=== PATIENT | male | born 2000 | race African-American/Black ===

== ENCOUNTER 2020-08-30 21:09 | Emergency (ER) | payer MEDICAID ==
[~2020-08-30] VITALS: Ht 170.2 cm; Wt 58.0 kg
[~2020-08-30 21:09] MED LIST: ALBU17AE26
[2020-08-31 00:39] VITALS: BP 117/89
== END 2020-08-31 00:43 | disposition home or self-care (01) ==
LOC: ER 21:09
DX: R05 Cough (principal); F12.90 Cannabis use, unspecified, uncomplicated
CPT/HCPCS: 99281

== ENCOUNTER 2020-11-17 23:56 | Emergency (ER) | payer MEDICAID ==
[~2020-11-17] VITALS: Ht 170.2 cm; Wt 61.0 kg
[2020-11-18 00:07] VITALS: BP 112/71
[2020-11-18] MEDS ORDERED: ALBU6.7H9 INH (01:20)
== END 2020-11-18 01:31 | disposition home or self-care (01) ==
LOC: ER 23:56
DX: R05 Cough (principal)
CPT/HCPCS: 71045; 99283

== ENCOUNTER 2021-02-15 18:25 | Emergency (ER) | payer MEDICAID ==
[~2021-02-15] VITALS: Ht 170.2 cm; Wt 61.0 kg
[~2021-02-15 18:25] MED LIST changes: +ALBU6.7H9 INH
[2021-02-15 18:28] VITALS: BP 116/64
[2021-02-15] MEDS ORDERED: MAGNESIUM/ALUMINUM HYDROXIDE/SIMETHICONE 30ML UDC PO STA (23:14)
[2021-02-15] MEDS ORDERED: KETOROLAC 60MG/2ML VIAL IM STA (23:14)
[2021-02-15] MEDS ORDERED: VISCOUS LIDOCAINE 2% 15 ML UDC PO STA (23:14)
[2021-02-15] MEDS ORDERED: ONDANSETRON 4MG ODT PO STA (23:14)
[2021-02-16 00:03] LABS: HEMOGLOBIN. 16.3 g/dL (14.0-18.0); MEAN CORPUSCULAR HEMOGLOBIN 31.9 pg (28.0-32.0); MEAN PLATELET VOLUME 7.8 fl (7.4-10.4); PLATELET 304 x1000/uL (130-400); RED BLOOD CELL COUNT 5.11 mill/uL (4.7-6.1); RED CELL DISTRIBUTION WIDTH 12.5 % (11.6-14.6)
[2021-02-16 00:11] LABS: CHLORIDE 102 mEq/L (98-107)
[2021-02-16 00:12] LABS: PROTHROMBIN TIME 10.9 sec (9.6-11.0)
[2021-02-16 00:15] LABS: ETHANOL BLOOD < 10 mg/dL
[2021-02-16 00:21] LABS: CLARITY URINE CLEAR (CLEAR); COLOR URINE YELLOW (YELLOW); KETONES URINE 4+ (NEGATIVE); LEUKOCYTE ESTERASE URINE NEGATIVE (NEGATIVE); NITRITE URINE NEGATIVE (NEGATIVE); OCCULT BLOOD URINE TRACE (NEGATIVE); PH URINE 6.5 (4.5-8.0); PROTEIN URINE 1+ (NEGATIVE); SPECIFIC GRAVITY URINE 1.034 (1.005-1.030)
[2021-02-16 00:32] LABS: *AMPHETAMINES SCREEN URINE NEGATIVE (NEGATIVE); CANNABINOID URINE SCREEN PRESUMTIVE POSITIVE (NEGATIVE)
[2021-02-16 00:33] LABS: *BARBITURATES SCREEN URINE NEGATIVE (NEGATIVE); *BENZODIAZEPINES SCREEN URINE NEGATIVE (NEGATIVE); *COCAINE SCREEN URINE NEGATIVE (NEGATIVE); METHADONE URINE SCREEN NEGATIVE (NEGATIVE); OPIATES URINE SCREEN NEGATIVE (NEGATIVE); PHENCYCLIDINE URINE SCREEN NEGATIVE (NEGATIVE)
[2021-02-16] MEDS ORDERED: ONDA4TAB5 MT (02:51)
[2021-02-16] MEDS ORDERED: PROT20 MT (02:51)
[2021-02-16] MEDS ORDERED: PANTOPRAZOLE 40MG DR TABLET PO NR (03:00)
[2021-02-16 05:05] LABS: PLATELET ESTIMATE NORMAL
== END 2021-02-16 03:20 | disposition home or self-care (01) ==
LOC: ER 18:25
DX: R10.11 Right upper quadrant pain (principal); R11.2 Nausea with vomiting, unspecified; F12.90 Cannabis use, unspecified, uncomplicated; J45.909 Unspecified asthma, uncomplicated; Z13.9 Encounter for screening, unspecified
CPT/HCPCS: 36415; 76700; 80053; 80305; 80320; 81003; 83690; 85025; 85610; 96372; 99284; J1885; Q0162; G0480